=== PATIENT | female | born 1995 | race Caucasian/White ===

== ENCOUNTER 2018-10-18 22:14 | Inpatient (IN) | payer MEDICAID ==
[~2018-10-18] VITALS: Ht 167.6 cm; Wt 77.1 kg
[~2018-10-18 22:14] MED LIST: NORCO 5-325 TA1 EACH PO
[2018-10-18 22:27] VITALS: BP 118/68
[2018-10-18] MEDS ORDERED: OCREVUS300 MG/10 IV (22:43)
[2018-10-18] MEDS ORDERED: [UNRECOGNIZED DRUG - OTHER] (22:44)
[2018-10-18] MEDS ORDERED: NEURONTIN 300300 M1 PO (22:44)
[2018-10-18 22:53] LABS: ABSOLUTE BASOPHILS 0.1 thou/uL (0.0-0.2); ABSOLUTE EOSINOPHILS 0.1 thou/uL (0.0-0.7); BASOPHILS 0.3 %; EOSINOPHILS 0.5 %; HEMATOCRIT 40.5 % (37.0-47.0); HEMOGLOBIN 13.8 gm/dL (12.0-15.0); LYMPHOCYTES 10.3 %; MCH 29.6 pg (26.0-34.0); MCHC 34.1 g/dL (28.0-37.0); MCV 86.7 fL (80.0-100.0); MONOCYTES 5.4 %; MPV 9.4 fl. (7.2-11.1); NUCLEATED RBCS 0 /100WBC; PLATELET COUNT* 322 thou/uL (150-400); POLYS 83.5 %; RBC 4.68 mil/uL (4.20-5.00); RDW-CV 15.5 % (10.5-14.5); WBC 19.2 thou/uL (4.0-11.0)
[2018-10-18 23:31] LABS: ALBUMIN 3.8 g/dL (3.4-5.0); CALCIUM 9.6 mg/dL (8.5-10.1); POTASSIUM 3.8 mmol/L (3.5-5.1); TOTAL BILIRUBIN 1.3 mg/dL (<0.1-1.0); TOTAL PROTEIN 7.4 g/dL (6.4-8.2)
[2018-10-18 23:37] LABS: URINE BILIRUBIN NEGATIVE (Negative); URINE BLOOD NEGATIVE (Negative); URINE CLARITY CLEAR; URINE COLOR YELLOW; URINE GLUCOSE-RANDOM NEGATIVE (Negative); URINE KETONES NEGATIVE (Negative); URINE LEUKOCYTES-REFLEX TRACE (Negative); URINE NITRITE-REFLEX NEGATIVE (Negative); URINE PROTEIN NEGATIVE (Negative)
[2018-10-18 23:50] LABS: CASTS None Seen /LPF (None Seen); CRYSTALS None Seen /LPF (None Seen); MUCUS 4-6 Moderate strn/LPF (None Seen); SQUAMOUS 0-3 Few /LPF (0-3); URINE RBC 0-2 Rare /HPF (0-2); URINE WBC-REFLEX 0-5 Rare /HPF (0-5)
[2018-10-19 02:42] VITALS: BP 110/43
[2018-10-19 07:50] VITALS: BP 98/56
[2018-10-19 11:37] LABS: AMP/METHAMP Negative (Negative); BARBITURATES Negative (Negative); BENZODIAZEPINES Negative (Negative); COCAINE Negative (Negative); METHADONE Negative (Negative); OPIATES Negative (Negative); PCP Negative (Negative); THC POSITIVE (Negative)
[2018-10-19 16:00] VITALS: BP 100/63
--- NOTE | 2018-10-19 16:40 | NUR ---
SW met with pt to complete initial assessment, introduce self, and SW role. Pt alert, oriented. Pt lives at home with her mother and Murphy. Pt did not express any dc needs at this time. SW to continue to follow to assist with safe dc planning if needs arise.
--- NOTE | 2018-10-19 16:53 | NUR ---
PATIENT UP TO BSC WITH ASSISTANCE, INCONTINENT AT TIMES. URINE SAMPLE OBTAINED AND SENT ORDERED. DR. PHILLIPS NOTIFIED OF RESULTS. IVF X 1 BAG INFUSING. NEURO SAW PATIENT THIS AM AND MRI'S ORDERED, AWAITING RESULTS. PRN ZOFRAN GIVEN X 1 PRIOR TO MRI PER PATIENT REQUEST.
[2018-10-19 21:15] VITALS: BP 102/58
[2018-10-20 05:06] LABS: HEMOGLOBIN 12.6 gm/dL (12.0-15.0); MCH 29.6 pg (26.0-34.0); MCV 87.1 fL (80.0-100.0); MPV 9.8 fl. (7.2-11.1); RBC 4.25 mil/uL (4.20-5.00); RDW-CV 15.6 % (10.5-14.5); WBC 5.1 thou/uL (4.0-11.0)
[2018-10-20 05:30] LABS: CREATININE 0.8 mg/dL (0.6-1.3); MAGNESIUM 1.7 mg/dL (1.8-2.4); POTASSIUM 3.8 mmol/L (3.5-5.1)
--- NOTE | 2018-10-20 05:38 | NUR ---
PT SLEPT MOST OF SHIFT. ASSESSMENT DOCUEMENTED. MEDS GIVEN PER E-MAR. IV PATENT. PAIN MEDS GIVEN PER E-MAR WITH RELIEF. PT REQUESTED TO SLEEP WITH NICOTINE PATCH ON. FALL PRECAUTIONS IN PLACE, WILL CONTINUE WITH PLAN OF CARE.
[2018-10-20 07:40] VITALS: BP 97/62
--- NOTE | 2018-10-20 13:04 | NUR ---
ACUTE REHAB HAS RECEIVED ORDERS TO EVALUATE FOR ADMITTANCE TO ACUTE REB. AT THIS TIME, AWAITING FOR THERAPY TO SEE PT. WILL CONTINUE TO FOLLOW. THANK YOU FOR THE REFERRAL
--- NOTE | 2018-10-20 16:25 | NUR ---
SW met with pt and pt mother at their request. Pt mother explained that pt is frustrated and agitated regarding pt plans and also that pt wants to be able to smoke; pt mother say says that the nicotene patch doesn't seem to be helping tremendously. Pt mother explained that pt and pt mother are staying with friends but looking for housing. SW provided [facility] help line number that they may have emergency assistance available for rent, utilities, etc. Pt said she did not want to stay inpt for therapies and had told someone on the phone that she wanted to "walk out" of hospital "because they aren't doing anything". SW to continue to follow to assist with safe dc planning.
--- NOTE | 2018-10-20 16:39 | NUR ---
PATIENT WORKED WITH THERAPY TODAY, SHOWERED. MG REPLACED VIA IV PER ORDERS FOR LAB VALUE OF 1.7. IV REMAINS SL. UP WITH ASSISTANCE TO BSC. DR. BANEGAS SAW PATIENT TODAY, NO STEROIDS NEEDED. REHAB CONS PLACED. PATIENTS DAD DORA CALLED THIS EVENING FOR AN UPDATE, UPDATE GIVEN. PATIENT NICOTINE PATCH OFF AFTER SHOWERING, PATIENT REFUSED ANOTHER ONE TO BE PLACED. PATIENT AND MOTHER REQUESTING WHEELCHAIR TO GO DOWN TO [facility], THIS NURSE INFORMED THEM THAT STAFF WOULD NEED TO GO WITH THEM TO [facility] AND THEN PATIENT REFUSED. PATIENT AND MOTHER REQUESTING TO SPEAK WITH CMKARSTEN NOTIFIED AND SPOKE WITH PATIENT.
[2018-10-20 21:05] VITALS: BP 103/45
--- NOTE | 2018-10-21 05:48 | NUR ---
ASSUMED CARES AT 2300. ALERT AND ORIENTED. PLEASANT. SALINE LOCK TO RIGHT FOREARM. PAIN MED GIVEN EARLIER BY HEMA GREGORY. MIN ASSIST WITH GAIT BELT UP TO BSC TO VOID. FAMILY AT BEDSIDE. CALL LIGHT IN REACH. BED ALARM ON.
[2018-10-21 08:00] VITALS: BP 96/60
[2018-10-21] MEDS ORDERED: NICOTINE TRANSD21 M1 TRANSDERM (12:52)
[2018-10-21] MEDS ORDERED: CYCLOBENZAPRINE10 MG PO (12:52)
[2018-10-21] MEDS ORDERED: TYLENOL EXTRA500 MG PO (12:52)
--- NOTE | 2018-10-21 14:23 | CON ---
[address] [address] CONSULTATION Name: AFSHINTAMRABRENDON TOLEDO Room: [address] ADM IN M.R.#: [id number] Admission: 10/19/18 Attend Phys: Cholo Roman Discharge: Date of : 89 Report #: [id number] THIS REPORT FOR: //name// CC: [facility] physician/PCP Barry Pimentel DATE OF SERVICE: 10/19/2018 HISTORY OF PRESENT ILLNESS: This is a 23-year-old female patient who was evaluated by me for a relapse of MS. This patient goes to [facility] for the Neurology care. I do not have any records. No family member is here. She indicated that in 2016, she was diagnosed with MS. She was having ambulation difficulty and she was having visual problems. They did MRI on her, but she does not remember having a spinal tap. I do not know what the MRI shows. She thinks MRI was without contrast, but she is not certain. She believes her ambulation difficulty has become worse and she had some urinary incontinence. She gets infusion of Ocrevus and she has been tried on gabapentin and Ampyra for her ambulation difficulty without any significant benefit. REVIEW OF SYSTEMS: Indicate that she lives with the family. They have to help her. She does not get her periods on a regular basis and does not even remember when was the last periods. She does not know what the etiology is. Her test was negative in the Emergency Room. Her mentation is also impaired and her memory is not very good. She is still able to carry on a day to day activities. However, she needs significant amount of help from the family. A 14-point review of system was carried out. She does have visual problems, but that is her baseline. She does not have any ENT, cardiac, respiratory, GI, problems. She does have some musculoskeletal issues with mid thoracic spine pain. She has no constitutional, dermatological, hematological, psychiatric, throat, allergic symptom associated with present symptomatology. PAST MEDICAL HISTORY: Positive for the diagnosis of MS. She believes it was a relapsing remitting. FAMILY HISTORY: Negative for early age stroke. SOCIAL HISTORY: She does not smoke or drink any alcohol. PHYSICAL EXAMINATION: Indicate that she is alert. She is responsive. She can follow simple commands. Her memory and fund of knowledge is poor, but that is her baseline. She has a pretty significant nystagmus looking towards either sides. Her vision is poor, especially in the left eye, but that is her baseline. She has diminished sensation and strength in all 4 extremities. She has markedly impaired isnvzh-vb-[id number] and significantly impaired zuwm-tr-yitg. Both the plantars appeared to be upgoing [place] [id number] CONSULTATION Name: TAMRA PEPE Room: [address] IN M.R.#: [id number] Admission: 10/19/18 Attend Phys: Cholo Roman Discharge: Date of : 89 Report #: [id number] reflexes does not appear to be that markedly exaggerated and in fact may be diminished in the lower extremities. I could not look at the fundus. The patient's cardiac examination is unremarkable. No respiratory difficulty was noticed. Blood pressure is 98/56, respiration is 14, pulse is 73, temperature is 98.5. LABORATORY DATA: Her white count is 19.2 and sodium is trace high. She does have some bacteria in the urine. She did undergo an MRI of the thoracic spine and lumbar spine in the Emergency Room and I reviewed those, that does not show any abnormality, which can explain the patient's symptoms. IMPRESSION: History of MS and the finding can be consistent with MS. We just need to find out if there are active lesions and what kind of MS has been diagnosed in this patient. She also may have some UTI and we will await that evaluation. I am not sure how much we will be able to do in this patient. I will probably try PT/OT first before giving her steroids and we will see how she works with that and we will see if any active lesion is present on the MRI. I discussed that with the patient and I discussed her options in that regard. I did discuss with her MRI with contrast or without contrast. I discussed with her irreversible complication of MRI with contrast as well as other potential complications including dermatological and iatrogenic. Her test is negative. She does not provide much history and I told her that negative does not always exclude . She understands all those. She wants to proceed with MRI with and without contrast and we will see what that shows before deciding about further treatment. <ELECTRONICALLY SIGNED> By: Molina Lopes MD 10/21/18 [id number] Lopes MD /nt
[2018-10-21 16:05] VITALS: BP 96/60
--- NOTE | 2018-10-21 16:36 | NUR ---
D/C CIVIL PREPAREDNESS OFFICER SPOKE TO PATIENT WITH INPATIENT PRIMING POWDER PREMIX BLENDER AND PATIENT NOW IN AGREEMENT WITH PLAN TO D/C TO INPATIENT REHAB UNIT HERE IN HOSPITAL. PATIENT WAS INITIALLY CONCERNED THAT SHE WOULDN'T BE ABLE TO GO TO HER MS APPOINTMENT ON FRIDAY. PRIMING POWDER PREMIX BLENDER HOPEFUL TO BE ABLE TO BE INSURANCE AUTH TODAY. CM WILL REMAIN AVAILABLE TO ASSIST AND FOLLOW NEEDED.
[2018-10-21 17:39] VITALS: BP 95/55
--- NOTE | 2018-10-21 18:05 | NUR ---
PT ALERT AND ORIENTED X 4. UP TO BSC WITH MIN ASSIST, WALKER, AND GAIT BELT. INCONTINENT @ TIMES. IV INFILTRATED AND REMOVED. REFUSED NICOTINE PATCH THIS AM. WORKED WITH THERAPY AND CHANGED MIND ABOUT REHAB DURING AFTERNOON. HOURLY ROUNDS MAINTAINED. PATIENT DISCHARGED FROM 3W ROOM 312 @ 1800 VIA BED TO REHAB UNIT.
[2018-10-21 18:09] VITALS: BP 96/60
== END 2018-10-21 18:00 | DRG 58 ==
LOC: M.ERS 22:14 → M.TBA-ER 10-19 01:08 → M.3W 10-19 01:08
PROVIDERS: Emergency Medicine Emergency Medical Services; Family Medicine; Psychiatry & Neurology Neuromuscular Medicine; ADMIT Internal Medicine
DX: G35 Multiple sclerosis (principal); R65.11 Systemic inflammatory response syndrome (SIRS) of non-infectious origin with acute organ dysfunction; M54.9 Dorsalgia, unspecified; R32 Unspecified urinary incontinence; E83.42 Hypomagnesemia; F17.210 Nicotine dependence, cigarettes, uncomplicated; Z71.6 Tobacco abuse counseling; Z83.3 Family history of diabetes mellitus

== ENCOUNTER 2018-10-21 17:01 | Inpatient (IN) | payer MEDICAID ==
[~2018-10-21] VITALS: Ht 167.6 cm; Wt 73.9 kg
[~2018-10-21 17:01] MED LIST changes: +AMPYRA PO; +CYCLOBENZAPRINE10 MG PO; +NEURONTIN 300300 M1 PO; +NICOTINE TRANSD21 M1 TRANSDERM; +OCREVUS300 MG/10 IV; +TYLENOL EXTRA500 MG PO
[2018-10-21 18:09] VITALS: BP 103/59
[2018-10-22 04:34] LABS: HEMATOCRIT 35.3 % (37.0-47.0); HEMOGLOBIN 12.2 gm/dL (12.0-15.0); MCH 30.2 pg (26.0-34.0); MCHC 34.5 g/dL (28.0-37.0); MCV 87.5 fL (80.0-100.0); MPV 9.2 fl. (7.2-11.1); RBC 4.03 mil/uL (4.20-5.00); RDW-CV 15.8 % (10.5-14.5); WBC 6.5 thou/uL (4.0-11.0)
[2018-10-22 04:48] LABS: CALCIUM 8.6 mg/dL (8.5-10.1); CREATININE 0.7 mg/dL (0.6-1.3); POTASSIUM 4.2 mmol/L (3.5-5.1)
[2018-10-22 20:18] VITALS: BP 95/60
[2018-10-23 07:00] VITALS: BP 93/57
[2018-10-23 20:50] VITALS: BP 110/62
[2018-10-24 08:04] VITALS: BP 93/49
[2018-10-24 20:06] VITALS: BP 104/70
[2018-10-25 07:44] VITALS: BP 101/60
[2018-10-25 19:39] VITALS: BP 94/49
[2018-10-26 07:27] VITALS: BP 88/46
[2018-10-26 19:54] VITALS: BP 107/65
[2018-10-27 08:00] VITALS: BP 142/94
[2018-10-27 19:00] VITALS: BP 106/66
[2018-10-28 07:52] VITALS: BP 107/66
[2018-10-28 14:38] LABS: URINE BILIRUBIN NEGATIVE (Negative); URINE BLOOD 1+ (Negative); URINE CLARITY CLEAR; URINE COLOR YELLOW; URINE GLUCOSE-RANDOM NEGATIVE (Negative); URINE KETONES NEGATIVE (Negative); URINE NITRITE-REFLEX NEGATIVE (Negative); URINE PROTEIN TRACE (Negative); URINE UROBILINOGEN 0.2 E.U./dl (0.2-1.0)
[2018-10-28 14:47] LABS: URINE LEUKOCYTES-REFLEX 3+ (Negative)
[2018-10-28 14:48] LABS: CASTS None Seen /LPF (None Seen); CRYSTALS None Seen /LPF (None Seen); SQUAMOUS 4-10 Moderate /LPF (0-3); URINE RBC 3-10 Few /HPF (0-2); URINE WBC-REFLEX >25 Many /HPF (0-5)
[2018-10-28 20:55] VITALS: BP 96/70
[2018-10-29 08:45] VITALS: BP 105/73
[2018-10-29 20:25] VITALS: BP 109/67
[2018-10-30 08:25] VITALS: BP 98/59
[2018-10-30 22:15] VITALS: BP 95/61
[2018-10-31 07:56] VITALS: BP 95/58
[2018-10-31 19:48] VITALS: BP 175/143
[2018-11-01 06:28] VITALS: BP 92/51
[2018-11-01 08:02] VITALS: BP 117/66
[2018-11-01 19:41] VITALS: BP 111/65
[2018-11-02 08:00] VITALS: BP 107/56
[2018-11-02 20:00] VITALS: BP 111/58
[2018-11-03 06:31] LABS: URINE BILIRUBIN NEGATIVE (Negative); URINE BLOOD 3+ (Negative); URINE CLARITY CLEAR; URINE COLOR YELLOW; URINE GLUCOSE-RANDOM NEGATIVE (Negative); URINE KETONES NEGATIVE (Negative); URINE LEUKOCYTES 1+ (Negative); URINE NITRITE NEGATIVE (Negative); URINE PROTEIN NEGATIVE (Negative); URINE SPECIFIC GRAVITY <= 1.005 (1.005-1.030); URINE UROBILINOGEN 0.2 E.U./dl (0.2-1.0)
[2018-11-03 06:37] LABS: SQUAMOUS 0-3 Few /LPF (0-3)
[2018-11-03 06:38] LABS: AMORPHOUS URATES Few /LPF (None Seen); BACTERIA 1-9 Few /HPF (None Seen); CASTS None Seen /LPF (None Seen); MUCUS 0-3 Light strn/LPF (None Seen); URINE WBC 0-5 Rare /HPF (0-5)
[2018-11-03 07:00] VITALS: BP 107/64
[2018-11-03 20:40] VITALS: BP 133/96
[2018-11-04 08:00] VITALS: BP 112/58
[2018-11-04 16:22] VITALS: BP 112/58
[2018-11-04] MEDS ORDERED: COLACE100 MG PO (17:19)
[2018-11-04] MEDS ORDERED: FLOMAX0.4 MG PO (23:39)
== END 2018-11-04 21:14 | disposition home or self-care (01) | DRG 59 ==
LOC: M.REH 17:01
PROVIDERS: Internal Medicine; Nurse Practitioner Adult Health; ADMIT Physical Medicine & Rehabilitation
DX: G35 Multiple sclerosis (principal); E44.1 Mild protein-calorie malnutrition; N39.0 Urinary tract infection, site not specified; K59.00 Constipation, unspecified; R32 Unspecified urinary incontinence; G89.29 Other chronic pain; N31.9 Neuromuscular dysfunction of bladder, unspecified; R33.9 Retention of urine, unspecified; M54.5 Low back pain; A59.9 Trichomoniasis, unspecified; F17.210 Nicotine dependence, cigarettes, uncomplicated; G43.909 Migraine, unspecified, not intractable, without status migrainosus; Z68.26 Body mass index [BMI] 26.0-26.9, adult; Z98.891 History of uterine scar from previous surgery; Z83.3 Family history of diabetes mellitus

== ENCOUNTER 2018-11-06 04:46 | Observation (INO) | payer MEDICAID ==
[~2018-11-06] VITALS: Ht 170.2 cm; Wt 72.1 kg
--- NOTE | ~2018-11-06 | CON ---
[address] [address] CONSULTATION Name: TAMRA PEPE Room: [address] Aden Seaman#: [id number] Admission: 11/06/18 Attend Phys: Heron Pablo MD Discharge: Date of : 94 Report #: [id number] THIS REPORT FOR: //name// CC: Heron Pablo [facility] physician/PCP DATE OF SERVICE: 11/06/2018 HISTORY OF PRESENT ILLNESS: This is a 23-year-old female patient who was seen by me last time. This patient has severe and rapidly progressive MS. She went to rehab and after rehab, she went home. She thinks she did too much there and her back got sore. Her biggest problem is sore back. It is not localized and it affects the whole musculature of the back. She does not know anything which makes it better or worse. It appeared to be moderately severe. REVIEW OF SYSTEMS: Indicate that this patient has a severe MS. We did an MRI on her last admission. That MRI demonstrated multiple extensive lesions, but none of them demonstrated any active enhancement. She had some other workup and it looks like her vitamin D was low. Her sed rate was normal. Her Lyme disease antibody is also normal. She still has pretty extensive features of MS clinically. A 14-point review of systems is otherwise summarized in my last note and is unchanged. PAST MEDICAL HISTORY: Positive for MS. FAMILY HISTORY: Negative for any early age stroke. SOCIAL HISTORY: Main support system was mother, whom I talked to extensively. PHYSICAL EXAMINATION: NEUROLOGIC: The patient's examination indicates she is alert. She is responsive. She can follow simple commands. She is slow in talking, but that is not any different than she was last time. Her cranial nerve examination does indicate nystagmus. Her vision is poor, but that is not much different. She had that nystagmus the last time also. She moves all four extremities and the strength is diminished to some extent in all 4 extremities. The biggest problem she has is ataxia of all 4 extremities. No change in cardiac or respiratory status. No edema, cyanosis or jaundice. VITAL SIGNS: The blood pressure is 109/65, respiration is 19, pulse is 64 and temperature is 99.1. LABORATORY DATA: Labs Indicate 5.6. Sodium is 145. IMPRESSION AND PLAN: The patient presents with back pain and in fact, it is more of a soreness of the back. Looking at the records, it looks like she got a dose of steroids downstairs and she also got some other [place] [address] CONSULTATION Name: TAMRA PEPE Room: [address] Aden Seaman#: [id number] Admission: 11/06/18 Attend Phys: Heron Pablo MD Discharge: Date of : 94 Report #: [id number] I believe was Ketorolac.. We will see how it does. It looks like it is a musculoskeletal back pain. We will see how she does with physical and occupational therapy. I think she needs more support and probably should ask medical case manager to evaluate this patient for alternative living arrangements. I discussed all of it with the patient and she understands and wants to follow this plan. By: [id number] Lopes MD /nt
[~2018-11-06 04:46] MED LIST changes: +COLACE100 MG PO; +FLOMAX0.4 MG PO
[2018-11-06 04:59] VITALS: BP 104/61
[2018-11-06 05:15] LABS: ABSOLUTE EOSINOPHILS 0.2 thou/uL (0.0-0.7); ABSOLUTE LYMPHOCYTES 1.9 thou/uL (0.8-5.3); ABSOLUTE MONOCYTES 0.5 thou/uL (0.0-1.2); BASOPHILS 0.7 %; EOSINOPHILS 3.7 %; HEMATOCRIT 40.4 % (37.0-47.0); HEMOGLOBIN 13.7 gm/dL (12.0-15.0); LYMPHOCYTES 33.7 %; MCH 30.1 pg (26.0-34.0); MCHC 33.8 g/dL (28.0-37.0); MCV 89.1 fL (80.0-100.0); MONOCYTES 9.1 %; MPV 8.6 fl. (7.2-11.1); NUCLEATED RBCS 0 /100WBC; PLATELET COUNT* 337 thou/uL (150-400); POLYS 52.8 %; RBC 4.54 mil/uL (4.20-5.00); RDW-CV 15.6 % (10.5-14.5); WBC 5.6 thou/uL (4.0-11.0)
[2018-11-06 05:24] LABS: CALCIUM 9.7 mg/dL (8.5-10.1); CREATININE 0.7 mg/dL (0.6-1.3); POTASSIUM 3.8 mmol/L (3.5-5.1)
[2018-11-06 05:29] LABS: ALBUMIN 3.8 g/dL (3.4-5.0); TOTAL BILIRUBIN 0.8 mg/dL (<0.1-1.0); TOTAL PROTEIN 7.5 g/dL (6.4-8.2)
[2018-11-06 12:46] VITALS: BP 93/66
[2018-11-06 13:54] VITALS: BP 104/65
[2018-11-06 16:15] VITALS: BP 109/65
--- NOTE | 2018-11-06 18:16 | NUR ---
PATIENT ADMITTED TO ROOM 307 FROM ER THIS AFTERNOON. C/O BACK PAIN. PRN TYLENOL GIVEN PER AUG ORDERS WITH MINIMAL RELIEF. IV SL. UP WITH SBA, PATIENT HAS HOME WHEELCHAIR HERE. REHAB AND NEURO CONS PLACED, BOTH CAME TO SEE PATIENT THIS EVENING. REFUSED SCD'S. NO SKIN BREAKDOWN NOTED. ORIENTED TO CALL LIGHT. CALL LIGHT WITHIN REACH, WILL CONTINUE TO MONITOR.
[2018-11-06 21:50] VITALS: BP 93/55
--- NOTE | 2018-11-07 05:50 | NUR ---
PT ALERT AND ORIENTED. VSS ON RA. ASSESSMENT COMPLETED AND DOCUMENTED. TREMOR NOTED ALL OVER PT. MOM IN THE ROOM WITH PT. MEDS GIVEN PER EMAR. PT SLEPT THROUGH SHIFT. FALL PRECAUTION IN PLACE. CALL LIGHT WITHIN REACH. HOURLY ROUNDINGS MADE. WILL CONTINUE TO MONITOR.
[2018-11-07 07:50] VITALS: BP 91/45
--- NOTE | 2018-11-07 12:00 | NUR ---
MET WITH PT AND MOTHER/RADHA TO DISCUSS HOME SITUATION/DC PLANNING. PT'S MOTHER ANSWERED MOST OF THE QUESTIONS. PT AND MOTHER ARE HOMELESS. PT WAS DC'D 11/04 FROM ACUTE REHAB TO A FRIEND'S HOME THAT THEY HAD ARRANGED. THERE WERE STAIRS IN THE HOME WELL 'BUGS' AND PER MOM, THEY CANNOT RETURN THERE. PT HAS LIVED WITH OTHER FRIENDS PRIOR TO HER 1ST INPT STAY BUT CANNOT RETURN THERE EITHER. PT CANNOT LIVE WITH HER BROTHER SHE HAS IN THE PAST AND PT'S FATHER HAS PT'S 3 CHILDREN 1,2,6 AND SHE IS NOT ABLE TO GO THERE. PER RADHA, PT AND HER HAVE LIVED TOGETHER WELL HER CHILDREN FOR SOME TIME. RADHA STATED IN THE LAST 3 YRS, IT HAS TAKEN THAT LONG FOR PT TO BE DIAGNOSED AND IN THAT TIME, RADHA LOST HER JOB AND 2 HOMES D/T VARYING CIRCUMSTANCES. RADHA HAS TRIED TO APPLY FOR EMERGENCY ASSISTANCE THRU [employer] BUT STILL WORKING ON PAPERWORK. SHE HAS ALSO TRIED TO FIND EMERGENCY HOUSING BUT HAS BEEN UNABLE. DID GIVE HER LIST OF EMERGENCY HOUSING/CORRECTION RESOURCES FROM [employer] AND HAVE ENCOURAGED HER TO MAKE CALLS. PT HAS A WALKER, W/C AND BSC. SHE WAS SET UP TO DO OUTPT THERAPY AT [facility] AT HER REHAB DC. ALSO GAVE RADHA NUMBER TO CONTACT [facility] FOR IN HOME SERVICES THRU MEDICAID FOR PT. PT AND RADHA AWARE SHE MAY BE DC'D FROM HOSPITAL TOMORROW. WILL FOLLOW
[2018-11-07 18:01] VITALS: BP 193/55
--- NOTE | 2018-11-07 18:19 | NUR ---
PATIENT RESTING IN BED. PATIENT IS UP TO WHEELCHAIR WITH MINIMAL ASSIST WITH GAIT BELT. PATIENT HAS HAD COMPLAINTS OF BACK PAIN, TREATED ADEQUATLEY WITH MEDICATION AND REST. PATIENT HAS EXCELLENT APPETITE. PATIENT UNABLE TO VOID THIS AM AND VOIDED SMALL UNMEASURED AMOUNT THIS AFTERNOON. BLADDER SCAN SHOWED > 538 THIS EVENING, STRAIGHT CATHED X 1 WITH 500ML OUT. NO OTHER CONCERNS AT THIS TIME. CALL LIGHT WITHIN REACH. WILL CONTINUE TO MONITOR.
[2018-11-07 21:30] VITALS: BP 113/64
--- NOTE | 2018-11-08 04:44 | NUR ---
PT ALERT AND ORIENTED THIS SHIFT. VSS ON RA. ASSESSMENT COMPLETED AND DOCUMENTED. PT SLEPT THROUGH SHIFT. MOM WAS NOT AT BEDSIDE THIS SHIFT. TREMORS NOTED THIS SHIFT. MEDS GIVEN PER EMR. FALL PRECAUTION IN PLACE. CALL LIGHT WITHIN REACH. HOURY ROUNDINGS MADE.
[2018-11-08 07:40] VITALS: BP 121/63
[2018-11-08] MEDS ORDERED: LIDOPATCH1 EACH TOP (10:35)
[2018-11-08] MEDS ORDERED: CYCLOBENZAPRINE10 MG PO (10:35)
[2018-11-08 16:08] VITALS: BP 121/65
[2018-11-08 17:17] VITALS: BP 121/65
--- NOTE | 2018-11-08 17:28 | NUR ---
PATIENT RESTING IN BED. PATIENT HAS COMPLAINTS OF BACK PAIN, TREATED ADEQUATELY WITH MEDICATION. PATIENT DISCHARGE PENDING SAFE HOUSING. PATIENT'S MOTHER UNABLE TO FIND HOUSING TONIGHT BUT STATES SHE HAS LEFT MESSAGES AND APPLICATIONS WITH [employer] SHE[employer]TERS AND HOUSING ASSISTANCE FACILITIES. PATIENT DENIES ANY NEEDS AT THIS TIME. CALL LIGHT WITHIN REACH. WILL CONTINUE TO MONITOR.
[2018-11-08 20:05] VITALS: BP 112/72
--- NOTE | 2018-11-09 05:06 | NUR ---
PT SLEPT MOST OF SHIFT. ASSESSMENT DOCUMENTED. MEDS GIVEN PER E-MAR. NO IV ACCESS THIS SHIFT. PTS MOM STAYED AT BEDSIDE MOST OF SHIFT. PAIN MEDS GIVEN PER E-MAR WITH SOME RELIEF. NO CONCERNS AT THIS TIME. WILL CONTINUE WITH PLAN OF CARE.
[2018-11-09 08:10] VITALS: BP 105/64
--- NOTE | 2018-11-09 13:50 | NUR ---
PHILIP met with pt and pt mother and SW refaxed [employer] application for emergency funding as pt mother stated that when she called organization said that they did not receive the paperwork that was faxed on Friday. PHILIP discussed dc planning with pt/pt mother and pt mother said she called homeless shelters but that all were full (SW also called after this and was told that they were full but for pt/pt mother to call back after 6 pm to check if there was any availability). SW asked if they would need transportation but mother said that she has her car here. Pt mother said she was trying to get the money together to secure a hotel. Pt mother asked pt nurse about option of Inpt rehab (after SW spoke with pt/pt mother) and nurse informed pt/pt mother that inpt rehab denied pt to return to inpt rehab at this point. DC pending bed available at homeless retirement or pt/pt mother receiving any funding or assistance from [employer] foundation or others to be able to pay for hotel/housing.
[2018-11-09 16:57] VITALS: BP 96/61
--- NOTE | 2018-11-09 18:24 | NUR ---
PATIENT OK TO DISCHARGE ONCE SHE HAS A SAFE PLACE TO GO TO. PATIENT STATED HER MOTHER LEFT THIS EVENING TO GET MONEY FOR A HOTEL AND WHEN SHE GETS BACK PATIENT STATED SHE WOULD BE READY FOR DISCHARGE. DR. ESQUIVEL AWARE. NO IV ACCESS. PATIENT UP WITH ASSISTANCE TO BATHROOM, INCONTINENT OF URINE. PATIENT STATED SHE WAS HAVING INCONTINENCE BUT STILL FELT LIKE SHE HAD TO VOID. PATIENT BLADDER SCANNED AFTER INCONTINENCE AND SHOWING 411MLS, DR. ESQUIVEL NOTIFIED AND NO NEW ORDERS RECEIVED.
[2018-11-09 20:00] VITALS: BP 139/60
--- NOTE | 2018-11-10 05:36 | NUR ---
PT'S MOTHER CALLED AT BEGINING OF SHIFT, STATING THAT SHE WAS ON HER WAY BACK UP, BUT THAT SHE IS RUNNING LATE BECAUSE HER "PHONE BATTERY " AND SHE "RAN OUT OF GAS", PT'S MOTHER WOULD NOT GIVE AN ANSWER TO IF SHE FOUND A PLACE, WHEN ASKED SHE STATED THAT SHE JUST NEEDED TO TALK TO HER DAUGHTER ABOUT IT. PTS MOTHER GOT TO THE HOSPITAL ABOUT 1030PM. ONCE MOTHER GOT HERE AND TALKED TO DAUGHTER, THIS NURSE ASKED PT AND PT'S MOTHER IF THEY HAD A PLACE AND PTS MOTHER STATED THAT SHE WASN'T SURE BUT THAT THEY MIGHT NEED TO STAY HERE FOR THE NIGHT AND REASSESS THE SITUATION IN THE MORNING. NURSING SURVEY QUESTIONNAIRE DESIGNER NOTIFIED. ASSESSMENT DOCUMENTED. MOTHER STAYED OVERNIGHT. PAIN MEDS GIVEN PER E-MAR. WILL CONTINUE WITH PLAN OF CARE.
--- NOTE | 2018-11-10 07:42 | NUR ---
PTS MOM LEFT SOMETIME THIS AM. PT STATED THAT SHE CALLED HER MOM AND THAT HER MOM STATED THAT SHE WAS ON HER WAY BACK UP TO GET HER AND THAT SHE WOULD LET STAFF KNOW WHEN SHE GOT HERE.
[2018-11-10 08:00] VITALS: BP 106/80
--- NOTE | 2018-11-10 10:26 | NUR ---
SW met with pt to discuss pt dc today. According to nursing, pt mother said she was coming back to pick up operator pt since 0600. SW expressed to pt that a cab voucher could be provided to pt step mom's home since that is an option and would be by noon today if pt mother does not arrive to pick up operator pt; or a cab could be provided to whatever location mother says she has available for pt. SW called homeless fpc hotline and provided referral; availability today at [facility] between 4 and 6 she could check in. [address] [facility] [place] [address]. Pt says that her mother told pt she was just cleaning out her car...SW explained we can no longer continue to wait on pt mother to pick up operator pt given her unreliability and that hospital will provide pt ride as needed to available options: step mother's home, hotel or location pt mother supposedly has arranged, or [facility].
--- NOTE | 2018-11-10 11:36 | NUR ---
PATIENT DISCHARGED WITH MOM AT THIS TIME. PER PATIENT MOM WAS ABLE TO OBTAIN HOUSING. IV WAS PREVIOUSLY DC'D. VERBALIZES UNDERSTANDING OF PAPERWORK AND SCRIPT. PATIENT TAKEN OUT VIA HOME WHEELCHAIR WITH ALL BELONGINGS.
== END 2018-11-10 11:39 | disposition home or self-care (01) ==
LOC: M.ERS 04:46 → M.TBA-ER 05:18 → M.3W 05:18 → M.TBA-ER 05:18 → M.3W 13:00
PROVIDERS: Family Medicine; ADMIT Internal Medicine
DX: M54.5 Low back pain (principal); G89.29 Other chronic pain; G35 Multiple sclerosis; R32 Unspecified urinary incontinence; R53.81 Other malaise; Z79.899 Other long term (current) drug therapy; Z98.890 Other specified postprocedural states; F17.210 Nicotine dependence, cigarettes, uncomplicated

== ENCOUNTER 2018-12-17 07:36 | Emergency (ER) | payer MEDICAID ==
[~2018-12-17] VITALS: Ht 167.6 cm; Wt 77.1 kg
[~2018-12-17 07:36] MED LIST changes: +LIDOPATCH1 EACH TOP
[2018-12-17] MEDS ORDERED: MEDROLDOSEPACK PO (09:39)
[2018-12-17] MEDS ORDERED: TORADOL 10 MG T10 MG PO (09:39)
[2018-12-17] MEDS ORDERED: NORCO 5-325 TA1 EAC1 PO (09:39)
[2018-12-17 09:50] VITALS: BP 110/69
== END 2018-12-17 09:50 | disposition home or self-care (01) ==
LOC: M.ERS 07:36
DX: G25.0 Essential tremor (principal); M54.5 Low back pain; F17.210 Nicotine dependence, cigarettes, uncomplicated; Z98.890 Other specified postprocedural states